=== PATIENT | male | born 1960 | race Caucasian/White ===

== ENCOUNTER 2022-08-10 06:24 | Emergency (ER) | payer OTHER ==
[2022-08-10] MEDS ORDERED: Ondansetron 4 MG/2 ML SDV IVPUSH PRN (06:43)
[2022-08-10] MEDS ORDERED: fentaNYL 50 MCG/ML SDV IVPUSH ONE (06:43)
[2022-08-10] MEDS ORDERED: Sodium Chloride 0.9% 1,000 ML IV SCH (06:45)
[2022-08-10 07:08] LABS: CHLORIDE,CL 96 mmol/L (98-107); SODIUM,NA 133 mmol/L (136-145)
[2022-08-10 07:11] LABS: ESTIMATED GFR 72 mL/min (>=60)
[2022-08-10] MEDS ORDERED: Iopamidol 612 MG/ML 100 ML Bottle IVPUSH STA (07:23)
[2022-08-10] MEDS ORDERED: HYDROmorphone 1 MG/ML Syringe IVPUSH PRN (08:41)
[2022-08-10] MEDS ORDERED: Orphenadrine 60 MG/2 ML Inj IM ONE (09:20)
[2022-08-10] MEDS ORDERED: Ketorolac 30 MG/ML SDV IM ONE ×2 (09:20)
[2022-08-10] MEDS ORDERED: Menthol 10%/Methyl Salicylate 15% 85 GM Tube TOP PRN (09:21)
[2022-08-10 17:22] VITALS: BP 130/62; PULSE 72
== END 2022-08-10 11:35 | disposition home or self-care (01) ==
LOC: LL.ED 06:24
DX: R10.9 Unspecified abdominal pain (principal); M54.9 Dorsalgia, unspecified; R31.9 Hematuria, unspecified; Z79.899 Other long term (current) drug therapy
CPT/HCPCS: 36415; 74178; 80053; 81001; 85025; 96361; 96372; 96374; 96375; 99284-25; A9270-GY; J1170; J1885; J2360; J2405; J3010; J7030; Q9967

== ENCOUNTER 2023-12-18 18:20 | Emergency (ER) | payer OTHER ==
[2023-12-18] MEDS ORDERED: Sodium Chloride 0.9% 10 ML Syringe FLUSH PRN (18:50)
[2023-12-18 20:09] LABS: CORONAVIRUS COVID-19 NAA NEGATIVE (NEGATIVE); INFLUENZA A NAA NEGATIVE (NEGATIVE); INFLUENZA B NAA NEGATIVE (NEGATIVE); RESPIRATORY SYNCYTIAL VIR NAA NEGATIVE (NEGATIVE)
[2023-12-18 20:10] VITALS: BP 136/90; PULSE 110
== END 2023-12-18 19:51 ==
LOC: LL.ED 18:20
DX: N17.9 Acute kidney failure, unspecified (principal); R41.82 Altered mental status, unspecified; E78.00 Pure hypercholesterolemia, unspecified; I10 Essential (primary) hypertension; Z79.899 Other long term (current) drug therapy; Z79.01 Long term (current) use of anticoagulants
CPT/HCPCS: 0241U; 93005; 99285

== ENCOUNTER 2024-01-18 05:54 | Emergency (ER) | payer OTHER ==
[~2024-01-18 05:54] MED LIST: Sodium Chloride 0.9% 10 ML Syringe FLUSH PRN
[2024-01-18 06:07] LABS: BASOPHILS ABSOLUTE AUTO 0.05 K/uL (0.00-0.20); BASOPHILS PERCENT AUTO 0.5 % (0.0-2.0); EOSINOPHILS ABSOLUTE AUTO 1.45 K/uL (0.00-0.50); EOSINOPHILS PERCENT AUTO 15.5 % (0.0-5.0); HEMATOCRIT 33.3 % (39.0-49.0); HEMOGLOBIN 10.3 g/dL (13.1-16.8); LYMPHOCYTES ABSOLUTE AUTO 1.91 K/uL (0.50-3.50); LYMPHOCYTES PERCENT AUTO 20.4 % (10.0-50.0); MEAN CORPUSCULAR HEMOGLOBIN 28.5 pg (28.2-33.3); MEAN CORPUSCULAR HGB CONC 30.9 g/dL (31.7-36.0); MONOCYTES ABSOLUTE AUTO 1.18 K/uL (0.00-1.00); MONOCYTES PERCENT AUTO 12.6 % (2.0-14.0); NEUTROPHILS ABSOLUTE AUTO 4.76 K/uL (1.40-7.00); PLATELET COUNT,PLT 399 K/uL (150-350); RED BLOOD CELL COUNT 3.62 M/uL (4.33-5.41); RED CELL DISTRIBUTION WIDTH 16.2 % (11.2-14.1); WHITE BLOOD CELL COUNT,WBC 9.4 K/uL (4.0-10.2)
[2024-01-18 06:27] LABS: ALANINE AMINOTRANSFERASE,ALT 9 U/L (12-78); ALBUMIN 2.2 g/dL (3.4-5.0); ALKALINE PHOSPHATASE 74 IU/L (46-116); ANION GAP 4.2 meq/L (7-15); ASPARTATE AMNIOTRANSFERASE,AST 41 U/L (15-37); BILIRUBIN TOTAL 0.5 mg/dL (0.2-1.0); BLOOD UREA NITROGEN,BUN 13 mg/dL (7-18); CALCIUM 8.2 mg/dL (8.5-10.1); CARBON DIOXIDE,CO2 31.8 mmol/L (21.0-32.0); CHLORIDE,CL 104 mmol/L (98-107); GLUCOSE RANDOM 119 mg/dL (70-99); INR 1.5 (0.9-1.1); POTASSIUM,K 4.5 mmol/L (3.5-5.1); PRO B-TYPE NATRIUR PEPT,BNPPRO 1568 pg/mL (0-125); PROTEIN TOTAL,TP 6.7 g/dL (6.4-8.2); PROTHROMBIN TIME 15.1 SEC (9.0-11.1); SODIUM,NA 140 mmol/L (136-145)
[2024-01-18 06:30] LABS: ESTIMATED GFR 52 mL/min (>=60)
[2024-01-18 06:42] VITALS: BP 118/78; PULSE 117
[2024-01-18] MEDS ORDERED: Cefepime 2 GM in Sodium Chloride 0.9% 50 ML IV ONE (07:18)
[2024-01-18] MEDS ORDERED: Sodium Chloride 0.9% 10 ML Syringe FLUSH PRN (07:18)
[2024-01-18] MEDS: Cefepime 2 GM in Sodium Chloride 0.9% 100 ML IV ONE (07:44)
[2024-01-18] MEDS ORDERED: Naloxone 0.4 MG/ML SDV IVPUSH PRN (08:05)
[2024-01-18 08:11] LABS: LACTIC ACID 1.8 mmol/L (0.4-2.0)
[2024-01-18] MEDS: fentaNYL 50 MCG/ML SDV IVPUSH ONE (08:17)
[2024-01-18] MEDS: Lactated Ringers 1,000 ML IV SCH (08:21)
== END 2024-01-18 09:00 ==
LOC: LL.ED 05:54
DX: S09.90XA Unspecified injury of head, initial encounter (principal); A41.9 Sepsis, unspecified organism; N17.9 Acute kidney failure, unspecified; R65.20 Severe sepsis without septic shock; J18.9 Pneumonia, unspecified organism; R41.0 Disorientation, unspecified; E78.00 Pure hypercholesterolemia, unspecified; I12.9 Hypertensive chronic kidney disease with stage 1 through stage 4 chronic kidney disease, or unspecified chronic kidney disease; N18.9 Chronic kidney disease, unspecified; Z79.899 Other long term (current) drug therapy; Z79.01 Long term (current) use of anticoagulants; W06.XXXA Fall from bed, initial encounter
CPT/HCPCS: 36415; 70450; 71045; 72125; 80053; 83605; 83880; 84484; 85025; 85610; 87040; 93005; 93010; 96374; 99284; 99285-25; J0692; J3010; J3490; J7120

== ENCOUNTER 2024-04-03 05:01 | Emergency (ER) | payer OTHER ==
[2024-04-03 05:46] LABS: BASOPHILS ABSOLUTE AUTO 0.02 K/uL (0.00-0.20); BASOPHILS PERCENT AUTO 0.4 % (0.0-2.0); EOSINOPHILS ABSOLUTE AUTO 0.27 K/uL (0.00-0.50); EOSINOPHILS PERCENT AUTO 5.5 % (0.0-5.0); HEMATOCRIT 40.8 % (39.0-49.0); HEMOGLOBIN 14.1 g/dL (13.1-16.8); LYMPHOCYTES ABSOLUTE AUTO 1.32 K/uL (0.50-3.50); LYMPHOCYTES PERCENT AUTO 26.9 % (10.0-50.0); MEAN CORPUSCULAR HEMOGLOBIN 29.7 pg (28.2-33.3); MEAN CORPUSCULAR HGB CONC 34.6 g/dL (31.7-36.0); MEAN CORPUSCULAR VOLUME 85.9 fL (84.0-98.0); MONOCYTES ABSOLUTE AUTO 0.53 K/uL (0.00-1.00); MONOCYTES PERCENT AUTO 10.8 % (2.0-14.0); NEUTROPHILS ABSOLUTE AUTO 2.76 K/uL (1.40-7.00); NEUTROPHILS PERCENT AUTO 56.4 % (45.0-80.0); PLATELET COUNT,PLT 114 K/uL (150-350); RED BLOOD CELL COUNT 4.75 M/uL (4.33-5.41); RED CELL DISTRIBUTION WIDTH 19.4 % (11.2-14.1); WHITE BLOOD CELL COUNT,WBC 4.9 K/uL (4.0-10.2)
[2024-04-03 05:59] LABS: ALANINE AMINOTRANSFERASE,ALT 232 U/L (12-78); ALBUMIN 2.8 g/dL (3.4-5.0); ALKALINE PHOSPHATASE 91 IU/L (46-116); ANION GAP 8.4 meq/L (7-15); ASPARTATE AMNIOTRANSFERASE,AST 442 U/L (15-37); BILIRUBIN TOTAL 1.2 mg/dL (0.2-1.0); BLOOD UREA NITROGEN,BUN 11 mg/dL (7-18); CALCIUM 8.3 mg/dL (8.5-10.1); CARBON DIOXIDE,CO2 26.6 mmol/L (21.0-32.0); CHLORIDE,CL 102 mmol/L (98-107); CREATININE 1.29 mg/dL (0.51-1.17); ESTIMATED GFR 63 mL/min (>=60); GLUCOSE RANDOM 93 mg/dL (70-99); POTASSIUM,K 4.5 mmol/L (3.5-5.1); PROTEIN TOTAL,TP 6.3 g/dL (6.4-8.2); SODIUM,NA 137 mmol/L (136-145)
[2024-04-03 15:01] VITALS: BP 107/79; PULSE 83
== END 2024-04-03 07:20 | disposition home or self-care (01) ==
LOC: LL.ED 05:01
DX: R74.01 Elevation of levels of liver transaminase levels (principal); T45.1X5A Adverse effect of antineoplastic and immunosuppressive drugs, initial encounter; I10 Essential (primary) hypertension; I12.9 Hypertensive chronic kidney disease with stage 1 through stage 4 chronic kidney disease, or unspecified chronic kidney disease; N18.9 Chronic kidney disease, unspecified; E78.00 Pure hypercholesterolemia, unspecified
CPT/HCPCS: 36415; 80053; 85025; 99284; 99285

== ENCOUNTER 2024-04-06 02:48 | Emergency (ER) | payer OTHER ==
[2024-04-06] MEDS: Sodium Chloride 0.9% 1,000 ML IV SCH (03:09)
[2024-04-06 03:21] LABS: BASOPHILS ABSOLUTE AUTO 0.02 K/uL (0.00-0.20); BASOPHILS PERCENT AUTO 0.3 % (0.0-2.0); EOSINOPHILS ABSOLUTE AUTO 0.45 K/uL (0.00-0.50); EOSINOPHILS PERCENT AUTO 7.3 % (0.0-5.0); HEMATOCRIT 40.4 % (39.0-49.0); HEMOGLOBIN 14.3 g/dL (13.1-16.8); LYMPHOCYTES PERCENT AUTO 24.3 % (10.0-50.0); MEAN CORPUSCULAR HEMOGLOBIN 29.7 pg (28.2-33.3); MEAN CORPUSCULAR HGB CONC 35.4 g/dL (31.7-36.0); MEAN CORPUSCULAR VOLUME 83.8 fL (84.0-98.0); MONOCYTES PERCENT AUTO 11.3 % (2.0-14.0); NEUTROPHILS ABSOLUTE AUTO 3.51 K/uL (1.40-7.00); NEUTROPHILS PERCENT AUTO 56.8 % (45.0-80.0); PLATELET COUNT,PLT 122 K/uL (150-350); RED BLOOD CELL COUNT 4.82 M/uL (4.33-5.41); WHITE BLOOD CELL COUNT,WBC 6.2 K/uL (4.0-10.2)
[2024-04-06 03:33] LABS: ALANINE AMINOTRANSFERASE,ALT 307 U/L (12-78); ALBUMIN 2.8 g/dL (3.4-5.0); ALKALINE PHOSPHATASE 94 IU/L (46-116); ASPARTATE AMNIOTRANSFERASE,AST 401 U/L (15-37); BILIRUBIN TOTAL 1.6 mg/dL (0.2-1.0); BLOOD UREA NITROGEN,BUN 13 mg/dL (7-18); CARBON DIOXIDE,CO2 24.1 mmol/L (21.0-32.0); CHLORIDE,CL 100 mmol/L (98-107); CREATININE 0.87 mg/dL (0.51-1.17); GLUCOSE RANDOM 120 mg/dL (70-99); MAGNESIUM 1.6 mg/dL (1.8-2.4); POTASSIUM,K 4.5 mmol/L (3.5-5.1); PROTEIN TOTAL,TP 6.5 g/dL (6.4-8.2); SODIUM,NA 134 mmol/L (136-145)
[2024-04-06 03:34] LABS: ANION GAP 14.4 meq/L (7-15); ESTIMATED GFR 98 mL/min (>=60)
[2024-04-06] MEDS ORDERED: oxyCODONE ER 10 MG TAB.ER PO PRN (04:26)
[2024-04-06] MEDS ORDERED: oxyCODONE 5 MG Tab PO PRN (04:31)
[2024-04-06] MEDS: Ketorolac 15 MG/ML SDV IVPUSH PRN (04:47)
[2024-04-06 06:43] LABS: APPEARANCE,URINE TURBID; BILIRUBIN,URINE MODERATE (NEGATIVE); COLOR,URINE ORANGE; GLUCOSE,URINE NEGATIVE (NEGATIVE); KETONES,URINE TRACE mg/dL (NEGATIVE); LEUKOCYTE ESTERASE,URINE NEGATIVE (NEGATIVE); NITRITE,URINE POSITIVE (NEGATIVE); OCCULT BLOOD,URINE NEGATIVE (NEGATIVE); PH,URINE 5.5 (5.0-9.0); PROTEIN,URINE 30 mg/dL (NEGATIVE)
[2024-04-06 07:07] LABS: AMORPHOUS SEDIMENT,URINE FEW /HPF (0/HPF); BACTERIA,URINE FEW /HPF (NONE TO FEW); RBC,URINE 0-5 /HPF; WBC,URINE 0-5 /HPF
[2024-04-06] MEDS: Al and Mag Hydroxide/Diphenhydramine/Lidocaine/Simethicone 237 ML Bottle PO PRN (08:24)
[2024-04-06] MEDS: Dextrose 5%-0.45% NaCl 1,000 ML IV SCH (12:12)
[2024-04-06] MEDS: Sodium Chloride 0.9% 10 ML Syringe FLUSH PRN (12:39)
[2024-04-06 19:10] VITALS: BP 99/66; PULSE 88
== END 2024-04-06 15:10 ==
LOC: LL.ED 02:48
DX: C64.1 Malignant neoplasm of right kidney, except renal pelvis (principal); E83.42 Hypomagnesemia; E86.0 Dehydration; C80.1 Malignant (primary) neoplasm, unspecified; R74.01 Elevation of levels of liver transaminase levels; R62.7 Adult failure to thrive; E78.00 Pure hypercholesterolemia, unspecified; I12.9 Hypertensive chronic kidney disease with stage 1 through stage 4 chronic kidney disease, or unspecified chronic kidney disease; N18.9 Chronic kidney disease, unspecified; Z79.899 Other long term (current) drug therapy; Z88.5 Allergy status to narcotic agent
CPT/HCPCS: 36415; 51701; 80053; 81001; 83605; 83735; 85025; 96361; 96365; 96375; 99285-25; A9270-GY; C1758; J1885; J3475; J3490; J7030; J7799